=== PATIENT | male | born 1960 | race Caucasian/White ===

== ENCOUNTER 2018-03-09 13:38 | Inpatient (IN) | payer OTHER ==
[~2018-03-09] VITALS: Ht 182.9 cm; Wt 78.2 kg
[2018-03-09 14:27] LABS: microscopic required? NO
[2018-03-09 14:38] LABS: BASOPHIL % 1.5 % (0-2)
[2018-03-09 14:47] LABS: CARBON DIOXIDE 25.1 mmol/L (21-32); CHLORIDE SERUM 98 mmol/L (98-107); GFR1 > 60 mL/min; GLUCOSE SERUM 91 mg/dL (74-106); POTASSIUM SERUM 3.6 mmol/L (3.5-5.1); SODIUM SERUM 135 mmol/L (136-145)
[2018-03-09 14:50] LABS: UA SPECIFIC GRAVITY 1.015 (1.005-1.035); urine erythrocyte NEGATIVE (NEGATIVE)
[2018-03-09 14:50] LABS: PLATELET COUNT 404 x10^3mcL (130-400); RED CELL DISTRIBUTION WIDTH 15.2 % (11.5-14.5)
[2018-03-09 14:51] LABS: ALBUMIN 3.8 g/dL (3.4-5.0); ALKALINE PHOSPHATASE 158 U/L (46-116); ALT/SGPT 40 U/L (16-63); AST/SGOT 34 U/L (15-37); BILIRUBIN TOTAL 0.4 mg/dL (0.20-1.00)
[2018-03-09 15:02] LABS: TOTAL PROTEIN, SERUM 8.5 g/dL (6.4-8.2)
[2018-03-09 15:53] LABS: AMPHETAMINE QUAL UR NONE DETECTED (See below)
[2018-03-09] MEDS ORDERED: DIGITEK250 MCG (18:58)
[2018-03-09] MEDS ORDERED: POTASSIUM CHLO10 MEQ (18:58)
[2018-03-09] MEDS ORDERED: ZESTRIL20 MG (18:58)
[2018-03-09] MEDS ORDERED: COREG CR20 MG (18:58)
[2018-03-09] MEDS ORDERED: GOOD SENSE ASPI81 M3 (18:58)
[2018-03-09] MEDS ORDERED: LIPITOR80 MG (18:59)
[2018-03-09] MEDS ORDERED: SOMA350 MG (18:59)
[2018-03-09] MEDS ORDERED: NOR10T (18:59)
[2018-03-09] MEDS ORDERED: LIPI10 (18:59)
[2018-03-09] MEDS ORDERED: LASIX20 MG (19:00)
[2018-03-09 19:18] LABS: MAGNESIUM 2.1 mg/dL (1.8-2.4); PHOSPHOROUS 3.4 mg/dL (2.5-4.9)
[2018-03-09 19:19] LABS: CHOLESTEROL/HDL RATIO 2.7
[2018-03-09 19:27] LABS: FREE T4 1.01 ng/dL (0.76-1.46); FREE THYROXINE INDEX 2.5 ug/dL (1.4-4.5); T4(THYROXINE) 7.1 ug/dL (4.7-13.3)
[2018-03-09 19:28] LABS: T3 TOTAL 1.08 ng/mL
[2018-03-09 19:40] VITALS: BP 149/73
[2018-03-09 19:42] VITALS: Ht 182.9 cm; Wt 78.2 kg
[2018-03-10 04:44] VITALS: BP 118/73
[2018-03-10 06:39] LABS: CALCIUM 8.9 mg/dL (8.5-10.1); CARBON DIOXIDE 26.4 mmol/L (21-32); CHLORIDE SERUM 103 mmol/L (98-107); GFR1 > 60 mL/min; GLUCOSE SERUM 89 mg/dL (74-106); POTASSIUM SERUM 4.1 mmol/L (3.5-5.1); SODIUM SERUM 137 mmol/L (136-145)
[2018-03-10 07:02] LABS: BASOPHIL % 0.6 % (0-2); PLATELET COUNT 353 x10^3mcL (130-400)
[2018-03-10 07:05] LABS: RED CELL DISTRIBUTION WIDTH 15.3 % (11.5-14.5)
[2018-03-10 08:35] VITALS: BP 137/53
[2018-03-10 12:01] VITALS: BP 113/61
[2018-03-10] MEDS ORDERED: METFORMIN500 M1 PO (12:14)
[2018-03-10 13:39] VITALS: BP 113/61
[2018-03-10] MEDS ORDERED: BLOOD GLUCOSE1 EAC3 MC (14:11)
[2018-03-10] MEDS ORDERED: BLOOD GLUCOSE1 EACH MC (14:13)
[2018-03-10] MEDS ORDERED: 1ST TIER UNILE1 EAC1 MC (14:14)
== END 2018-03-10 15:00 | disposition home or self-care (01) | DRG 69 ==
LOC: ED 13:38 → DU 18:40
PROVIDERS: Emergency Medicine; Internal Medicine
DX: G45.9 Transient cerebral ischemic attack, unspecified (principal); I50.43 Acute on chronic combined systolic (congestive) and diastolic (congestive) heart failure; N17.0 Acute kidney failure with tubular necrosis; I69.351 Hemiplegia and hemiparesis following cerebral infarction affecting right dominant side; E87.1 Hypo-osmolality and hyponatremia; I11.0 Hypertensive heart disease with heart failure; E11.65 Type 2 diabetes mellitus with hyperglycemia; E78.5 Hyperlipidemia, unspecified; I69.328 Other speech and language deficits following cerebral infarction; Z79.82 Long term (current) use of aspirin; Z68.23 Body mass index [BMI] 23.0-23.9, adult
CPT/HCPCS: 82962; 83880; 84439; J1160; J2270; J2405; J7030; Q0092; Q9967

== ENCOUNTER 2019-04-19 05:04 | Inpatient (IN) | payer OTHER ==
[~2019-04-19] VITALS: Ht 180.3 cm; Wt 76.0 kg
[~2019-04-19 05:04] MED LIST: 1ST TIER UNILE1 EAC1 MC; BLOOD GLUCOSE1 EAC3 MC; BLOOD GLUCOSE1 EACH MC; COREG CR20 MG; DIGITEK250 MCG; GOOD SENSE ASPI81 M3; LASIX20 MG; LIPI10; LIPITOR80 MG; METFORMIN500 M1 PO; NOR10T; POTASSIUM CHLO10 MEQ; SOMA350 MG; ZESTRIL20 MG
[2019-04-19 05:09] VITALS: Ht 180.3 cm; Wt 76.0 kg
[2019-04-19 06:37] LABS: CALCIUM 9.3 mg/dL (8.5-10.1); CARBON DIOXIDE 25.5 mmol/L (21-32); CHLORIDE SERUM 93 mmol/L (98-107); CREATININE SERUM 1.1 mg/dL (0.7-1.3); GFR1 > 60 mL/min; GLUCOSE SERUM 93 mg/dL (74-106); SODIUM SERUM 134 mmol/L (136-145)
[2019-04-19 06:41] LABS: ALBUMIN 3.9 g/dL (3.4-5.0); ALKALINE PHOSPHATASE 186 U/L (46-116); ALT/SGPT 255 U/L (16-63); AST/SGOT 335 U/L (15-37); TOTAL PROTEIN, SERUM 7.5 g/dL (6.4-8.2)
[2019-04-19 06:43] LABS: BASOPHIL % 0.2 % (0-2)
[2019-04-19 06:44] LABS: PLATELET COUNT 432 x10^3mcL (130-400); RED CELL DISTRIBUTION WIDTH 17.8 % (11.5-14.5)
[2019-04-19 07:41] LABS: microscopic required? NO
[2019-04-19 07:54] LABS: urine erythrocyte NEGATIVE (NEGATIVE)
[2019-04-19] MEDS ORDERED: LISINOPRIL2.5 MG (08:13)
[2019-04-19] MEDS ORDERED: LASIX20 MG (08:13)
[2019-04-19] MEDS ORDERED: PAXIL10 MG (08:13)
[2019-04-19 20:35] LABS: HDL CHOLESTEROL 40 mg/dL (40-60)
[2019-04-19 20:37] LABS: CHOLESTEROL 122 mg/dL (<200); CHOLESTEROL/HDL RATIO 3.1; TRIGLYCERIDES 822 mg/dL (<150)
[2019-04-19 22:30] VITALS: BP 158/84
[2019-04-20 06:13] VITALS: BP 126/75
[2019-04-20 06:47] LABS: BASOPHIL % 0.6 % (0-2); PLATELET COUNT 322 x10^3mcL (130-400)
[2019-04-20 06:53] LABS: CALCIUM 7.2 mg/dL (8.5-10.1); CHLORIDE SERUM 106 mmol/L (98-107); CREATININE SERUM 0.9 mg/dL (0.7-1.3); GFR1 > 60 mL/min; GLUCOSE SERUM 102 mg/dL (74-106); PHOSPHOROUS 1.2 mg/dL (2.5-4.9); POTASSIUM SERUM 3.8 mmol/L (3.5-5.1); SODIUM SERUM 137 mmol/L (136-145)
[2019-04-20 07:07] LABS: RED CELL DISTRIBUTION WIDTH 18.3 % (11.5-14.5)
[2019-04-20 09:27] VITALS: BP 142/108
[2019-04-20 12:12] VITALS: BP 134/85
[2019-04-20 17:10] VITALS: BP 115/77
[2019-04-20 21:22] VITALS: BP 123/78
[2019-04-21 05:41] VITALS: BP 120/64
[2019-04-21 06:41] LABS: BASOPHIL % 0.7 % (0-2); PLATELET COUNT 296 x10^3mcL (130-400)
[2019-04-21 06:50] LABS: ALKALINE PHOSPHATASE 173 U/L (46-116); ALT/SGPT 112 U/L (16-63); AST/SGOT 130 U/L (15-37); BILIRUBIN TOTAL 1.43 mg/dL (0.20-1.00); CALCIUM 7.4 mg/dL (8.5-10.1); CARBON DIOXIDE 26.7 mmol/L (21-32); CHLORIDE SERUM 107 mmol/L (98-107); CREATININE SERUM 0.8 mg/dL (0.7-1.3); GFR1 > 60 mL/min; GLUCOSE SERUM 85 mg/dL (74-106); PHOSPHOROUS 1.6 mg/dL (2.5-4.9); POTASSIUM SERUM 3.2 mmol/L (3.5-5.1); SODIUM SERUM 139 mmol/L (136-145)
[2019-04-21 06:52] LABS: ALBUMIN 2.4 g/dL (3.4-5.0); TOTAL PROTEIN, SERUM 5.2 g/dL (6.4-8.2)
[2019-04-21 07:07] LABS: RED CELL DISTRIBUTION WIDTH 19.2 % (11.5-14.5)
[2019-04-21 08:50] VITALS: BP 111/69
[2019-04-21 12:55] VITALS: BP 108/74
[2019-04-21 17:31] VITALS: BP 118/79
[2019-04-21 19:32] VITALS: BP 130/71
[2019-04-22 04:53] VITALS: BP 139/78
[2019-04-22 06:37] LABS: BASOPHIL % 0.6 % (0-2); PLATELET COUNT 301 x10^3mcL (130-400)
[2019-04-22 06:57] LABS: RED CELL DISTRIBUTION WIDTH 19.1 % (11.5-14.5)
[2019-04-22 07:12] LABS: ALKALINE PHOSPHATASE 170 U/L (46-116); ALT/SGPT 111 U/L (16-63); AST/SGOT 100 U/L (15-37); CALCIUM 8.4 mg/dL (8.5-10.1); CARBON DIOXIDE 28.5 mmol/L (21-32); CHLORIDE SERUM 106 mmol/L (98-107); CREATININE SERUM 0.9 mg/dL (0.7-1.3); GFR1 > 60 mL/min; GLUCOSE SERUM 91 mg/dL (74-106); LIPASE 310 IU/L (73-393); MAGNESIUM 1.6 mg/dL (1.8-2.4); PHOSPHOROUS 2.3 mg/dL (2.5-4.9); POTASSIUM SERUM 4.3 mmol/L (3.5-5.1); SODIUM SERUM 138 mmol/L (136-145); TOTAL PROTEIN, SERUM 6.2 g/dL (6.4-8.2)
[2019-04-22 07:17] LABS: ALBUMIN 2.8 g/dL (3.4-5.0)
[2019-04-22 08:24] VITALS: BP 109/66
[2019-04-22 12:40] VITALS: BP 116/65
[2019-04-22] MEDS ORDERED: GOOD SENSE OMEP20 MG PO (13:08)
[2019-04-22 13:20] VITALS: BP 116/65
[2019-04-22 18:00] VITALS: BP 118/70
== END 2019-04-22 18:50 | disposition home or self-care (01) | DRG 391 ==
LOC: ED 05:04 → DU 19:46 → MU 19:46 → DU 22:56
PROVIDERS: Emergency Medicine; Internal Medicine Gastroenterology; ADMIT General Practice
PROC: 0DB58ZX Excision of Esophagus, Via Natural or Artificial Opening Endoscopic, Diagnostic (ICD-10-PCS; principal; 2019-04-22 08:00)
PROC: 0DB68ZX Excision of Stomach, Via Natural or Artificial Opening Endoscopic, Diagnostic (ICD-10-PCS; 2019-04-22 08:00)
PROC: 0DBN8ZZ Excision of Sigmoid Colon, Via Natural or Artificial Opening Endoscopic (ICD-10-PCS; 2019-04-22 08:00)
DX: K57.30 Diverticulosis of large intestine without perforation or abscess without bleeding (principal); N17.0 Acute kidney failure with tubular necrosis; E87.2 Acidosis; E87.1 Hypo-osmolality and hyponatremia; E86.0 Dehydration; E11.9 Type 2 diabetes mellitus without complications; K21.0 Gastro-esophageal reflux disease with esophagitis; K44.9 Diaphragmatic hernia without obstruction or gangrene; K29.60 Other gastritis without bleeding; K26.7 Chronic duodenal ulcer without hemorrhage or perforation; D12.5 Benign neoplasm of sigmoid colon; I72.2 Aneurysm of renal artery; I10 Essential (primary) hypertension; E87.6 Hypokalemia; E83.39 Other disorders of phosphorus metabolism; R74.0 Nonspecific elevation of levels of transaminase and lactic acid dehydrogenase [LDH]; I25.2 Old myocardial infarction; Z68.20 Body mass index [BMI] 20.0-20.9, adult; Z79.84 Long term (current) use of oral hypoglycemic drugs; Z86.73 Personal history of transient ischemic attack (TIA), and cerebral infarction without residual deficits
CPT/HCPCS: 43235; 45378; 83880; C9113; G0378; G0480; J1200; J1610; J2060; J2250; J2270; J2310; J2405; J3010; J3490; J7030; J7042; Q0092

== ENCOUNTER 2019-05-06 16:07 | Inpatient (IN) | payer OTHER ==
[~2019-05-06] VITALS: Ht 180.3 cm; Wt 68.0 kg
[~2019-05-06 16:07] MED LIST changes: +GOOD SENSE OMEP20 MG PO; +LISINOPRIL2.5 MG; +PAXIL10 MG
[2019-05-06 16:11] VITALS: Ht 180.3 cm; Wt 68.0 kg
[2019-05-06 16:57] LABS: BASOPHIL % 0.3 % (0-2); PLATELET COUNT 381 x10^3mcL (130-400)
[2019-05-06 16:58] LABS: RED CELL DISTRIBUTION WIDTH 19.3 % (11.5-14.5)
[2019-05-06 17:10] LABS: CALCIUM 8.4 mg/dL (8.5-10.1); CARBON DIOXIDE 29.9 mmol/L (21-32); CHLORIDE SERUM 96 mmol/L (98-107); CREATININE SERUM 0.8 mg/dL (0.7-1.3); GFR1 > 60 mL/min; GLUCOSE SERUM 90 mg/dL (74-106); SODIUM SERUM 134 mmol/L (136-145)
[2019-05-06 17:15] LABS: ALBUMIN 3.4 g/dL (3.4-5.0); ALKALINE PHOSPHATASE 157 U/L (46-116); ALT/SGPT 79 U/L (16-63); AST/SGOT 105 U/L (15-37); BILIRUBIN TOTAL 0.8 mg/dL (0.20-1.00); TOTAL PROTEIN, SERUM 7.1 g/dL (6.4-8.2)
[2019-05-06 18:58] LABS: AMPHETAMINE QUAL UR NONE DETECTED (See below)
[2019-05-06 20:48] LABS: T3 TOTAL 1.36 ng/mL
[2019-05-06 21:15] LABS: FREE T4 0.97 ng/dL (0.76-1.46); FREE THYROXINE INDEX 2.9 ug/dL (1.4-4.5); T4(THYROXINE) 8.4 ug/dL (4.7-13.3)
[2019-05-07 00:33] LABS: MAGNESIUM 1.8 mg/dL (1.8-2.4); PHOSPHOROUS 2.6 mg/dL (2.5-4.9)
[2019-05-07 00:34] LABS: CHOLESTEROL/HDL RATIO 1.9
[2019-05-07 05:01] LABS: BASOPHIL % 0.5 % (0-2); PLATELET COUNT 376 x10^3mcL (130-400)
[2019-05-07 05:10] LABS: CALCIUM 7.4 mg/dL (8.5-10.1); CHLORIDE SERUM 104 mmol/L (98-107); CREATININE SERUM 0.9 mg/dL (0.7-1.3); GFR1 > 60 mL/min; GLUCOSE SERUM 92 mg/dL (74-106); MAGNESIUM 1.4 mg/dL (1.8-2.4); POTASSIUM SERUM 3.2 mmol/L (3.5-5.1); SODIUM SERUM 142 mmol/L (136-145)
[2019-05-07 05:41] LABS: RED CELL DISTRIBUTION WIDTH 17.7 % (11.5-14.5)
[2019-05-07 15:34] VITALS: BP 139/92
[2019-05-07 21:00] VITALS: BP 120/77
[2019-05-08 06:29] VITALS: BP 143/98
[2019-05-08 06:32] LABS: CALCIUM 7.8 mg/dL (8.5-10.1); CARBON DIOXIDE 27.3 mmol/L (21-32); CHLORIDE SERUM 108 mmol/L (98-107); CREATININE SERUM 0.8 mg/dL (0.7-1.3); GFR1 > 60 mL/min; GLUCOSE SERUM 98 mg/dL (74-106); MAGNESIUM 1.5 mg/dL (1.8-2.4); PHOSPHOROUS 2.6 mg/dL (2.5-4.9); POTASSIUM SERUM 3.6 mmol/L (3.5-5.1); SODIUM SERUM 142 mmol/L (136-145)
[2019-05-08 06:47] LABS: PLATELET COUNT 303 x10^3mcL (130-400)
[2019-05-08 07:39] LABS: RED CELL DISTRIBUTION WIDTH 20.7 % (11.5-14.5)
[2019-05-08 09:00] VITALS: BP 135/89
[2019-05-08 09:57] LABS: BAND NEUTROPHIL 0 % (0-10); BASOPHIL 0 % (0-2); MONOCYTE 20 % (0-7); SEGMENTED NEUTROPHILS 73 % (37-75)
[2019-05-08 10:10] LABS: PLATELET MORPHOLOGY PLATELETS INCREASED; rbc morphology (normal/abnorm) ABNORMAL (NORMAL)
[2019-05-08 11:38] VITALS: BP 135/89
[2019-05-08 12:08] VITALS: BP 137/87
== END 2019-05-08 14:02 | disposition home or self-care (01) | DRG 897 ==
LOC: ED 16:07 → DU 21:59
PROVIDERS: Emergency Medicine; Internal Medicine; ADMIT Family Medicine
DX: F10.121 Alcohol abuse with intoxication delirium (principal); E87.6 Hypokalemia; E83.42 Hypomagnesemia; I11.0 Hypertensive heart disease with heart failure; I50.9 Heart failure, unspecified; E78.5 Hyperlipidemia, unspecified; I25.2 Old myocardial infarction; Z68.20 Body mass index [BMI] 20.0-20.9, adult; Z79.82 Long term (current) use of aspirin; Z79.84 Long term (current) use of oral hypoglycemic drugs; Z86.73 Personal history of transient ischemic attack (TIA), and cerebral infarction without residual deficits; Y90.5 Blood alcohol level of 100-119 mg/100 ml
CPT/HCPCS: 83880; 84439; 97116-GP; G0378; G0480; J2060; J3475; J3490; J7030; Q0092

== ENCOUNTER 2019-06-03 08:05 | Emergency (ER) | payer OTHER ==
[~2019-06-03] VITALS: Ht 180.3 cm; Wt 75.7 kg
[2019-06-03 08:15] VITALS: Ht 180.3 cm; Wt 75.7 kg
[2019-06-03 09:52] LABS: BASOPHIL % 0.8 % (0-2)
[2019-06-03 10:01] LABS: PLATELET COUNT 638 x10^3mcL (130-400); RED CELL DISTRIBUTION WIDTH 16.4 % (11.5-14.5)
[2019-06-03 10:03] LABS: CALCIUM 8.7 mg/dL (8.5-10.1); CARBON DIOXIDE 27.9 mmol/L (21-32); CHLORIDE SERUM 102 mmol/L (98-107); CREATININE SERUM 0.7 mg/dL (0.7-1.3); GFR1 > 60 mL/min; GLUCOSE SERUM 99 mg/dL (74-106); POTASSIUM SERUM 3.5 mmol/L (3.5-5.1); SODIUM SERUM 140 mmol/L (136-145)
[2019-06-03 10:07] LABS: ALBUMIN 3.7 g/dL (3.4-5.0); ALKALINE PHOSPHATASE 133 U/L (46-116); ALT/SGPT 99 U/L (16-63); AST/SGOT 113 U/L (15-37); BILIRUBIN TOTAL 0.5 mg/dL (0.20-1.00); LIPASE 107 IU/L (73-393); TOTAL PROTEIN, SERUM 7.6 g/dL (6.4-8.2)
[2019-06-03 12:34] LABS: UA SPECIFIC GRAVITY 1.025 (1.005-1.035); microscopic required? YES; urine erythrocyte NEGATIVE (NEGATIVE)
[2019-06-03 13:47] VITALS: BP 145/87
== END 2019-06-03 13:47 | disposition home or self-care (01) ==
LOC: ED 08:05
PROVIDERS: Emergency Medicine
DX: K29.20 Alcoholic gastritis without bleeding (principal); I11.0 Hypertensive heart disease with heart failure; I50.9 Heart failure, unspecified; F10.10 Alcohol abuse, uncomplicated; Z86.73 Personal history of transient ischemic attack (TIA), and cerebral infarction without residual deficits
CPT/HCPCS: G0480; J2405; J3010; J3490; Q0092

== ENCOUNTER 2019-07-23 17:46 | Emergency (ER) | payer OTHER ==
[~2019-07-23] VITALS: Ht 180.3 cm; Wt 79.4 kg
[2019-07-23 17:53] VITALS: Ht 180.3 cm; Wt 79.4 kg
[2019-07-23 18:39] LABS: microscopic required? NO
[2019-07-23 18:39] LABS: BASOPHIL % 0.9 % (0-2); PLATELET COUNT 285 x10^3mcL (130-400)
[2019-07-23 18:41] LABS: RED CELL DISTRIBUTION WIDTH 15.5 % (11.5-14.5)
[2019-07-23 18:45] LABS: UA SPECIFIC GRAVITY >=1.030 (1.005-1.035); urine erythrocyte NEGATIVE (NEGATIVE)
[2019-07-23 18:57] LABS: CALCIUM 9.1 mg/dL (8.5-10.1); CARBON DIOXIDE 27.2 mmol/L (21-32); CHLORIDE SERUM 104 mmol/L (98-107); CREATININE SERUM 0.9 mg/dL (0.7-1.3); GFR1 > 60 mL/min; GLUCOSE SERUM 73 mg/dL (74-106); POTASSIUM SERUM 4.2 mmol/L (3.5-5.1); SODIUM SERUM 142 mmol/L (136-145)
[2019-07-23 19:06] LABS: ALBUMIN 3.5 g/dL (3.4-5.0); ALKALINE PHOSPHATASE 108 U/L (46-116); ALT/SGPT 72 U/L (16-63); AST/SGOT 56 U/L (15-37); BILIRUBIN TOTAL 0.48 mg/dL (0.20-1.00); CHOLESTEROL 150 mg/dL (<200); HDL CHOLESTEROL 101 mg/dL (40-60); LIPASE 102 IU/L (73-393); MAGNESIUM 1.8 mg/dL (1.8-2.4); TOTAL PROTEIN, SERUM 7.7 g/dL (6.4-8.2)
[2019-07-23 19:07] LABS: AMPHETAMINE QUAL UR POSITIVE (See below)
[2019-07-23 22:03] VITALS: BP 145/72
== END 2019-07-23 22:04 | disposition short-term general hospital (02) ==
LOC: ED 17:46
PROVIDERS: Emergency Medicine
DX: G93.41 Metabolic encephalopathy (principal); R74.0 Nonspecific elevation of levels of transaminase and lactic acid dehydrogenase [LDH]; I11.0 Hypertensive heart disease with heart failure; I50.9 Heart failure, unspecified; F15.20 Other stimulant dependence, uncomplicated; F10.10 Alcohol abuse, uncomplicated; Z86.73 Personal history of transient ischemic attack (TIA), and cerebral infarction without residual deficits; Z98.890 Other specified postprocedural states
CPT/HCPCS: 82962; 83880; G0480; J1956; J7030; J7040; Q0092